=== PATIENT | male | born 1970 | race Caucasian/White ===

== ENCOUNTER 2024-03-10 12:56 | Emergency (ER) | payer OTHER, SELFPAY ==
[2024-03-10 12:57] VITALS: BP 120/98; PULSE 75; RESP 16; TEMP 36.6; O2SAT 98; BMI 30.7
--- NOTE | 2024-03-10 12:59 | EDS_ITS ---
HPI History of Present Illness Chief Complaint: Lower Extremity Injury [facility] Medical History (Updated 03/10/24 @ 13:12 by Letitia Wells) Knee injury Home Medications ?Medication ?Instructions ?Recorded ?Last Taken ?Type multivitamin with folic acid 400 1 tab PO DAILY 01/18/14 Unknown History mcg tablet (Thera) levofloxacin 500 mg tablet 500 mg PO DAILY #7 tabs 01/19/14 Unknown Rx (Levaquin) oxycodone-acetaminophen 5 mg-325 1 - 2 tab PO Q4H PRN PRN Pain #30 01/19/14 Unknown Rx mg tablet tabs Allergy/AdvReac Type Severity Reaction Status Date / Time Penicillins Allergy Unknown Verified 01/18/14 13:41 Social History Smoking Status: Unknown if ever smoked EXAM Physical Exam Const Vital Signs: 03/10/24 12:57 Temperature 97.8 F Temperature Source Oral Pulse Rate 75 Respiratory Rate 16 Blood Pressure 120/98 H Blood Pressure Mean 105 Pulse Ox 98 Oxygen Delivery Method Room Air MDM MDM MDM Narrative Medical decision making narrative: HISTORY OF PRESENT ILLNESS: 53-year-old male presents with concern for right knee pain. Notes felt a pop in his right knee last night. Could normally get it back but could not this time Patient denies active cancer, being bedridden for greater than 3 days, denies unilateral leg swelling, denies any varicose veins, denies any calf tenderness, denies tenderness along deep venous system. Denies major surgery within 12 weeks, recent paralysis, previous DVT. REVIEW OF SYSTEMS: Pertinent positives: Knee pain Pertinent negatives: swelling, calf TTP, numbness, tingling, PHYSICAL EXAM: Nursing triage notes reviewed, Vital signs reviewed Constitutional: please see mdm Extremities: No edema Neuro intact sensation L1-S1 dermatomal distributions. Intact 5/5 strength in hip flexion (T12-L3). Knee extension (L2-L4). Ankle dorsiflexion (L4-L5). Ankle plantar flexion (S1). Great toe extension (L5). 2+ patellar and Achilles DTRs. Skin: No rash or lesions noted MEDICAL DECISION MAKING: Chief Complaint: Knee pain External records reviewed: Reviewed prior allergies, problem list, vital signs, current medications, prior inpatient records Factors affecting care: none Social determinants of health: none History obtained from others: none Consults: none MDM Narrative: Patient was hemodynamically stable, afebrile and nontoxic-appearing. Exam with limited extension of right knee but no obvious knee effusion, calf tenderness, neurovascular compromise right lower extremity, compartments are soft. I considered the following differential diagnosis: Arthritis, soft tissue injury of the knee including meniscal tear, ligamentous injury, knee sprain, patellar dislocation, knee fracture dislocation, septic arthritis, compartment syndrome, DVT Patient's clinical exam was not consistent with compartment syndrome, DVT, arterial occlusion, septic arthritis. No indication for advanced images or arthrocentesis at this time. Was more concerned about meniscal tear versus ligamentous injury versus patella fracture dislocation versus femur or tibia fracture dislocation. As such I obtained an x-ray. I gave the patient 1 dose of oxycodone. ALL IMAGES (IF OBTAINED) HAVE BEEN PERSONALLY REVIEWED AND INTERPRETED BY MYSELF. X-ray of the right knee was read and reviewed personally myself showed no evidence of obvious bony abnormality. Radiologist agreed my interpretation. Suspect patient suffering from soft tissue injury such as a meniscal tear. He will need outpatient MRI. Will give him close orthopedic follow-up. Strict return precautions were discussed The patient and/or family, caregivers express understanding. The patient and/or family, caregivers agrees with the plan. Shared decision making: I will have a discussion with the patient and or visitors regarding risk/benefits of further testing or admission. They will be made aware of of the risk/benefits inherent in this decision they will be given the opportunity to voice understanding. Total critical care time today provided was at least 0 minutes. This excludes separately billable procedures. Critical care time (if documented) is secondary to the patient having high probability of clinically significant/life threatening deterioration in the patient's condition which required my urgent intervention. Impression: 1. Acute right knee pain 2. Knee sprain Dispo: Discharge home This note was generated with [employer] dictation software. It may contain incorrect words, spelling, and punctuation that were not noted in review of the chart prior to signing. Radiography Diagnostic Testing: Clinical Impression(s) from Imaging Studies Knee X-Ray 03/10/24 13:16 IMPRESSION: Normal x-ray examination of the knee. Electronically Signed: Timi Moreau MD at 14:53 EDT , Discharge Plan Triage Chief Complaint: Lower Extremity Injury ED Provider: Stevan Savage Dx/Rx/DC Orders Prescriptions: No Action multivitamin with folic acid [Thera] 1 TABLET tablet 1 tab PO DAILY levofloxacin [Levaquin] 500 MG tablet 500 mg PO DAILY Qty: 7 0RF oxycodone-acetaminophen 1 TABLET tablet 1 - 2 tab PO Q4H PRN PRN (Reason: Pain) Qty: 30 0RF Primary Care Provider: Care Physician,No Primary Referrals: Care Physician,No Primary [Primary Care Provider] - Print Language: Kazakh
--- NOTE | 2024-03-10 13:16 | RAD_ITS ---
STUDY: X-RAY - RIGHT KNEE REASON FOR EXAM: Male, 53 years old. Pain TECHNIQUE: 3 view(s) of the knee. COMPARISON: None. FINDINGS: Normal visualized distal femur. Normal visualized proximal tibia and fibula. Normal proximal tibiofibular articulation. There is no demonstrated fracture. Normal medial femorotibial compartment. Normal lateral femorotibial compartment. Normal patellofemoral articulation. The soft tissue structures are unremarkable. RAD/Knee 3 Views IMPRESSION: Normal x-ray examination of the knee. Electronically Signed: Timi Moreau MD at 14:53 EDT ,
[2024-03-10] MEDS: oxyCODONE 5 MG Tablet PO (13:25)
--- OUTSIDE RECORDS SUMMARY | 2024-03-10 13:29 | XMS RPT_ITS | CCD ---
Author Organization [facility] Care Team Providers Care Facilities Clerk Name Role Phone PRICE FONTANEZ III Unavailable Unavailable Huseyin MOORE MD, Frank A Primary Care Provider Sadaf vailable Allergies Allergy Classification Reported Allergen(s) Allergy Type Date of Onset Reaction(s) Facility (2 sources) Penicillins; Translations: [PENICILLINS] Propensity to adverse reactions to drug (disorder) 5 [facility] Repository (2 sources) Seasonal allergy; Translations: [SEASONAL ALLERGIES] Propensity to adverse reactions (disorder) 7 Unknown [facility] Repository Medications Current Medications Medication Drug Class(es) Dates Sig (Normalized) Sig (Original) cholecalciferol, vitamin D3, (VITAMIN D3 ORAL) (1 source) cholecalciferol, vitamin D3, (VITAMIN D3 ORAL) Take by mouth. Active CPAP (3 sources) Start: 12-15-2017 CPAP Indications: ELVIRA (obstructive sleep apnea) Please send supplies: suitable mask per pt preference, Need for chin strap, head gear, humidity, tubing, lifetime supplies. G47.33 Obstructive Sleep Apnea 1 Device 12/15/2017 Active Start: 09-14-2017 CPAP Cpap 15 c m H2O, Heat Humidity, suitable mask, Lifetime supplies, opt Chinstrap, G47.33. 1 Device 09/14/2017 Active Start: 09-14-2017 CPAP Indicatio ns: ELVIRA (obstructive sleep apnea) CHIN STRAP, USED WITH CPAP DEVICE 1 Device 09/14/2017 Active multivitamin (DAILY VITAMIN) tablet (1 source) Start: 01-18-2014 take 1 tablet by mouth once daily multivitamin (DAILY VITAMIN) tablet Take 1 tablet by mouth once daily. 0 01/18/2014 Active VITAMIN A ORAL (1 source) VITAMIN A ORAL T david by mouth. Active Zinc (1 source) ZINC ORAL Take b y mouth. Active Problems Active Problems Problem Classification Problem Date Documented Da te Episodic/Chronic Other non-traumatic joint disorders (1 source) Pain of right wrist; Translations: [Pain in right wrist] 03-23-2021 Episodic Residual codes; unclassified (1 source) Daytime somnolence; Translations: [Other hypersomnia] Onset: 12-30-2016 12-30-2016 Chronic Residual codes; unclassified (1 source) Obstructive sleep apnea syndrome; Translations: [Obstructive sleep apnea (adult) (pediatric)] Onset: 03-16-2017 03-16-2017 Chronic Unclassified (2 sources) Other hypersomnia; Translations: [Obstructive sleep apnea (adult) (pediatric)] Onset: 12-30-2016 Chronic Past or Other Problems Problem Classification Problem Date Documented Da te Episodic/Chronic Appendicitis and other appendiceal conditions (1 source) Acute appendicitis with generalized peritonitis; Translations: [Acute appendicitis with generalized peritonitis] Onset: 01-22-2014 Resolved: 12-30-2016 12-30-2016 Episodic Residual codes; unclassified (1 source) Family history of prostate cancer; Translations: [Family history of malignant neoplasm of prostate] Onset: 12-30-2016 12-30-2016 Episodic Substance-related disorders (1 source) Tobacco user; Translations: [Nicotine dependence, unspecified, uncomplicated] Onset: 06-14-2007 Resolved: 12-30-2016 12-30-2016 Chronic Results Test Name Value Interpretation Reference Range Facil frdeo Carrie 03-27-2021 MARISELA Telephone ([facility]) JOAQUINA OLMOS ([id number]) 1970 M Date Time Provider Department 03/27/21 [facility] During your visit today, we recorded the following information about you: Diane Cerda APRN.CNP 03/27/2021 3:02 PM Signed Can please call the patient and let him know that I reviewed his lab results. His labs overall look good, I do not see any signs of diabetes. However his triglycerides were elevated. I would recommend taking an tsdr-vcz-tvzfuza fish oil and trying to work on eating a healthy diet. Try to get some form of exercise. Please let me know if he has any questions. No further testing is needed at this time. Thank you. Diane Cerda APRN.ERINN Greco Ma 03/30/2021 3:19 PM Signed Pt notified via [place]. Michelle Greco Ma Allergies As of Date: 03/27/2021 Noted Allergy Reaction PENICILLINS 03/15/2005 SEASONAL ALLERGIES 12/30/2016 16 - Unknown Date Reviewed: 03/23/2021 Reviewed by: Diane Cerda APRN.HYDRAULIC ASSEMBLER - Fully Assessed Reason for Visit: Results [95] Prescriptions as of 03/30/2021 - cholecalciferol, vitamin D3, (VITAMIN D3 ORAL) Take by mouth. - VITAMIN A ORAL Take by mouth. - ZINC ORAL Take by mouth. - CPAP Please send supplies: suitable mask per pt preference, Need for chin strap, head gear, humidity, tubing, lifetime supplies. G47.33 Obstructive Sleep Apnea - CPAP Cpap 15 cm H2O, Heat Humidity, suitable mask, Lifetime supplies, opt Chinstrap, G47.33. - CPAP CHIN STRAP, USED WITH CPAP DEVICE - multivitamin (DAILY VITAMIN) tablet Take 1 tablet by mouth once daily. Problem List As Of Date 03/27/2021 Noted Resolved Tobacco use disorder [F17.200] 06/14/2007 12/30/2016 Acute appendicitis with generalized peritonitis* 4 12/30/2016 Family history of prostate cancer in father [Z8*12/30/2016 Excessive daytime sleepiness [G47.19] 12/30/2016 ELVIRA (obstructive sleep apnea) [G47.33] 03/16/2017 Encounter Status:Closed by MICHELLE GRECO [facility]ELA [facility] ([facility]) OLMOSJOAQUINA Mukherjee ([id number]) 1970 M Date Time Provider Department 03/25/21 DIANE CERDA During your visit today, we recorded the following information about you: Diane Cerda APRN.CNP 03/25/2021 12:27 PM Signed Can you please call the patient and let him know that I reviewed his x-ray results. The x-ray of the wrist did not show any fractures however does show some cystic changes within the wrist due to overuse. We can continue to use the wrist brace along with a good NSAID to reduce inflammation or I can order more advanced imaging to look closer at the soft tissue. The other option is to place consult to orthopedics to have an evaluation from them first. Please let me know what he would like to do. Thank you. Diane Cerda APRN.ERINN Dolan LPN 03/25/2021 3:09 PM Signed TC to pt.Left a detailed on a secure line to update him on xray and recommendations from ERINN. Also to call office, ask for a triage nurse on what directions he wants to go in. Marti Arroyo LPN 03/31/2021 1:37 PM Signed Pt would like to see an [facility]. Ralph let him know when the referral has been faxed. Lisbeth Cerda APRN.CNP 04/01/2021 12:36 PM Signed Can you please fax the ortho consult to [facility] for right wrist pain. Thank you. Diane Cerda APRN.ERINN Greco Ma 04/01/2021 2:48 PM Signed Referral, demo, ov, x ray faxed to [facility]. Will have their office call pt to schedule. Michelle Greco Ma Allergies As of Date: 03/25/2021 Noted Allergy Reaction PENICILLINS 03/15/2005 SEASONAL ALLERGIES 12/30/2016 16 - Unknown Date Reviewed: 03/23/2021 Reviewed by: Diane Cerda APRN.ERINN - Fully Assessed Reason for Visit: Orders [681] Primary Visit Diagnosis:Right wrist pain [M25.531] Order(s):CONSULT TO ORTHOPAEDICS [6693] Order #: [id number]: 1 FUTURE Prescriptions as of 04/01/2021 - cholecalciferol, vitamin D3, (VITAMIN D3 ORAL) Take by mouth. - VITAMIN A ORAL Take by mouth. - ZINC ORAL Take by mouth. - CPAP Please send supplies: suitable mask per pt preference, Need for chin strap, head gear, humidity, tubing, lifetime supplies. G47.33 Obstructive Sleep Apnea - CPAP Cpap 15 cm H2O, Heat Humidity, suitable mask, Lifetime supplies, opt Chinstrap, G47.33. - CPAP CHIN STRAP, USED WITH CPAP DEVICE - multivitamin (DAILY VITAMIN) tablet Take 1 tablet by mouth once daily. Problem List As Of Date 03/25/2021 Noted Resolved Tobacco use disorder [F17.200] 06/14/2007 12/30/2016 Acute appendicitis with generalized peritonitis* 4 12/30/2016 Family history of prostate cancer in father [Z8*12/30/2016 Excessive daytime sleepiness [G47.19] 12/30/2016 ELVIRA (obstructive sleep apnea) [G47.33] 03/16/2017 Encounter Status:Closed by MICHELLE GRECO MA on 04/01/21 Normal [facility] CBC and Differentialon 03-23 Abs Baso 0.04 k/uL Normal <0.11 [facility] Comment on above: Performed By: #### C BCDIF, LIPB #### [facility] [address] [place], [place] [address] Abs [place] 0.52 k/uL Normal <0.87 [facility] Comment on above: Performed By: #### C BCDIF, LIPB #### [facility] [address] [place], [place] [address] Abs Neut 3.34 k/uL Normal 1.45-7.50 [facility] Comment on above: Performed By: #### C BCDIF, LIPB #### [facility] [address] [place], [place] [address] Absolute nRBC <0.01 Normal <0.01 [facility] Comment on above: Performed By: #### C BCDIF, LIPB #### [place] [address] [place] [phone] Basophils/100 WBC (Bld) 0.7 % Normal [facility] Comment on above: Performed By: #### C BCDIF, LIPB #### [place] [phone] DTYPE Auto Diff Normal [facility] Comment on above: Performed By: #### C BCDIF LIPB #### [place] [phone] Eosinophils (Bld) [#/Vol] 0.21 10*3/uL Normal <0.46 [facility] Comment on above: Performed By: #### C BCDIF LIPB #### [place] [phone] Eosinophils/100 WBC (Bld) 3.8 % Normal [facility] Comment on above: Performed By: #### C BCDIGenny LIPB #### [place] [phone] [place] [phone] Erythrocyte distribution width (RBC) [Ratio] 12.7 % Normal 11.5-15.0 [facility] Comment on above: Performed By: #### C BCDIF, LIPB #### [place] [address] [place] [phone] Hematocrit (Bld) [Volume fraction] 45.9 % Normal 39.0-51.0 [facility] Comment on above: Performed By: #### C BCDIF, LIPB #### [place] [address] [place] [phone] Hemoglobin (Bld) [Mass/Vol] 15.1 g/dL Normal 13.0-17.0 [facility] Comment on above: Performed By: #### C BCDIF, LIPB #### [place] [address] [place], [place] [address] Lymphocytes (Bld) [#/Vol] 1.46 10*3/uL Normal 1.00-4.00 [facility] Comment on above: Performed By: #### C BCDIF, LIPB #### [place] [address] Lymphocytes/100 WBC (Bld) 26.1 % Normal [facility] Comment on above: Performed By: #### C BCDIF, LIPB #### [place] [address] MCH 29.4 pG Normal 26.0-34.0 [facility] Comment on above: Performed By: #### C BCDIF, LIPB #### [place] [address] MCHC (RBC) [Mass/Vol] 32.9 g/dL Normal 30.5-36.0 [facility] Comment on above: Performed By: #### C BCDIF, LIPB #### [place] [address] MCV (RBC) [Entitic vol] 89.5 fL Normal 80.0-100.0 [facility] Comment on above: Performed By: #### C BCDIF, LIPB #### [place] [address] Monocytes/100 WBC (Bld) 9.3 % Normal [facility] Comment on above: Performed By: #### C BCDIF, LIPB #### [place] [address] Neutrophils/100 WBC (Bld) 60.1 % Normal [facility] Comment on above: Performed By: #### C BCDIF, LIPB #### [address], [place] [address] NRBCs 0.0 /100 WBC Normal 0 [facility] Comment on above: Performed By: #### KEYSHA PÉREZ #### [place] [address] [place] [address] Platelet mean volume (Bld) [Entitic vol] 10.3 fL Normal 9.0-12.7 [facility] Comment on above: Performed By: #### KEYSHA PÉREZ #### [place] [address] [place] [address] Platelets (Bld) [#/Vol] 252 10*3/uL Normal 150-400 [facility] Comment on above: Performed By: #### BRANDY PÉREZB #### [place] [address] RBC (Bld) [#/Vol] 5.13 10*6/uL Normal 4.20-6.00 [facility] [place] [facility] Comment on above: Performed By: #### BRANDY PÉREZB #### [place] [address] [place] [address] WBC (Bld) [#/Vol] 5.59 10*3/uL Normal 3.70-11.00 [facility] [place] [facility] Comment on above: Performed By: #### KEYSHA PÉREZ #### [place] [address] [place] [address] CNOVon 03-23-2021 CNOV Office Visit (FAMPWS ) JOAQUINA OLMOS ([id number]) 1970 Date Time Provider Department 03/23/21 7:00 AM DIANE CERDA During your visit today, we recorded the following information about you: Pulse Respiration Blood pressure Weight 75/minute 16/minute 110/79 100.2 kg Height 1.785 m Diane Cerda APRN.CNP 03/23/2021 8:20 AM Signed This is a 50 year old male who presents today with: Patient presents with: Physical HISTORY OF PRESENT ILLNESS: Joaquina Olmos is a 50 year old male. Patient presents with: Physical Here in the office for wellness exam. Diet: eating a well balanced diet. Exercise: around the house, outside work. Vision: Due for exam, wears both contacts and glasses. Dental: Due for exam no difficulties. Sleep: 7-8 hours per night. Mood: Some increased anxiety at work due to stress, refers he is not ready to try medication as this time. Denies any sadness, hopelessness, or suicidal ideation. ELVIRA: Using Cpap, no concerns. Colonoscopy: Has never had, does not want at this time, will do stool occult card. PSA: Dad had prostate Ca. Vaccines: Denies all vaccines but is willing to get Tdap. Right Wrist Pain: Was moving railraod ties at the house about 4-5 weeks ago. Saunemin a pop, got very sore. He can now barley move this right thumb. Pain is sharp that waxes and wanes. Using a wrist thumb wrap. Has been using ibuprofen which is mildly helpful. PAST MEDICAL HISTORY: PAST MEDICAL HISTORY Diagnosis Date - NEGATIVE MEDICAL HISTORY PAST SURGICAL HISTORY Procedure Laterality Date - LAPAROSCOPY, SURGICAL, APPENDECTOMY 01/18/14 early - VASECTOMY 2004 ALLERGIES Penicillins and Seasonal Allergies MEDICATIONS Current Outpatient Medications Medication Sig - CPAP Please send supplies: suitable mask per pt preference, Need for chin strap, head gear, humidity, tubing, lifetime supplies. G47.33 Obstructive Sleep Apnea - CPAP Cpap 15 cm H2O, Heat Humidity, suitable mask, Lifetime supplies, opt Chinstrap, G47.33. - CPAP CHIN STRAP, USED WITH CPAP DEVICE - multivitamin (DAILY VITAMIN) tablet Take 1 tablet by mouth once daily. No current facility-administered medications for this visit. FAMILY HISTORY Problem Relation Age of Onset - Diabetes Mother - Prostate Cancer Father 65 Social History Tobacco Use - Smoking status: Former Smoker Years: 20.00 - Smokeless tobacco: Former User Types: Snuff Quit date: 04/11/2013 - Tobacco comment: 1 can weekly Substance Use Topics - Alcohol use: Yes Comment: occasionally - Drug use: No REVIEW OF SYSTEMS GENERAL: No weight loss, malaise or fevers/chills HEENT: Negative for frequent or significant headaches, No changes in hearing or vision. NECK: Negative for lumps, goiter, pain and significant neck swelling RESPIRATORY: Negative for cough, hemoptysis, wheezing, dyspnea or shortness of breath CARDIOVASCULAR: Negative for chest pain, leg swelling, orthopnea, or palpitations GI: No nausea, vomiting, or diarrhea/constipation . No hematochezia/melena. No heartburn or reflux symptoms. : No history of dysuria, frequency or incontinence MUSCULOSKELETAL: + Right wrist pain SKIN: Negative for lesions, rash, and itching ENDOCRINE: Negative for cold or heat intolerance, polyuria, polydipsia and goiter NEURO: No history of headaches, syncope, paralysis, seizures or tremors MOOD: Negative for depression, anxiety, or suicidal ideation. EXAM: BP 110/79 Pulse 75 Resp 16 Ht 178.5 cm (5' 10.28 ) Wt 100.2 kg (221 lb) SpO2 96% BMI 31.46 kg/m? PHYSICAL EXAM: General Appearance: Well appearing, alert, in no acute distress, well-hydrated, well nourished. Skin: Skin color, texture, turgor normal, no suspicious rashes or lesions. Head: Normocephalic, no masses, lesions, tenderness or abnormalities. Eyes: Anicteric sclera. Pupils are equally round and reactive to light. Extraocular movements are intact. Ears: External ears normal, canals clear. TM's pearly mccord. Neck: Supple, no adenopathy; thyroid symmetric, normal size, no bruits. Lungs: Lungs clear to auscultation. No wheezing, rhonchi, rales. Heart: RRR without murmur, gallop, or rubs. No ectopy. Abdomen: Normal abdominal exam, Abdomen soft, non-tender. Bowel sounds normal. No masses, organomegaly, Negative CVA tenderness. Extremities: No deformities, edema, skin discoloration, clubbing or cyanosis. Good capillary refill. Musculoskeletal: Positive findings: Extension decreased, pain noticed on radial aspect of right wrist. No swelling or color change noted. Peripheral Pulses: Normal, Capillary refill <2secs, strong peripheral pulses, Pulses palpable. Neurologic: Gait normal. Reflexes normal and symmetric. Sensation grossly intact. Mood: Pleasant, good eye contact, engaged. ASSESSMENT/PLAN: 1. Wellness examination - ICD9: V70.0, ICD10: Z (more content not included)... Normal [facility] Lipid Panel, [place] 021 Cholesterol [Mass/Vol] 161 mg/dL Normal <200 [facility] Comment on above: Result Comment: <200 mg/dL, Desirable 200-239 mg/dL, Borderline high >239 mg/dL, High Performed By: #### C BCDIF, LIPB #### [facility] [address] [place], [place] [address] Cholesterol in HDL [Mass/Vol] 26 mg/dL Low >39 [facility] Comment on above: Result Comment: 40-5 9 mg/dL, Acceptable >59 mg/dL, High: Negative risk factor for coronary heart disease <40 mg/dL, Low: Positive risk factor for coronary heart disease Performed By: #### C BCDIF, LIPB #### [facility] [address] [place], [place] [address] Cholesterol in LDL [Mass/Vol] 75 mg/dL Normal <100 [facility] Comment on above: Result Comment: <100 mg/dL, Optimal 100-129 mg/dL, Near optimal/above optimal 130-159 mg/dL, Borderline high 160-189 mg/dL, High >189 mg/dL, Very high Secondary prevention optimal LDL Cholesterol levels are recommended to be < 70 mg/dL Performed By: #### C BCDIF, LIPB #### [facility] [address] [place], [place] [address] Fasting Time 12 hrs Normal [facility] Comment on above: Performed By: #### C BCDIF, LIPB #### [facility] [address] [place], [place] [address] LDL:HDL Ratio 2.88 High <2.54 [facility] Comment on above: Result Comment: Refe rence: 1. National Cholesterol Education Program ATP III Guideline At-A-Glance Quick Desk Reference: National Heart, Lung, and Blood [place]. National Institutes of Health. 2001: NIH Publication No. 01-3305. 2. An International Atherosclerosis Society position paper: global recommendations for the management of dyslipidemia: executive summary, Atherosclerosis. 2014: 232(2):410-413. Performed By: #### C BCDIF, LIPB #### [facility] [address] [place] [address] Non HDL Cholesterol 135 mg/dL High <130 [facility] [place] [facility] Comment on above: Result Comment: <130 mg/dL, Optimal 130-159 mg/dL, Near optimal/above optimal 160-189 mg/dL, Borderline high 190-219 mg/dL, High >219 mg/dL, Very high Secondary prevention optimal non HDL Cholesterol levels are recommended to be < 100 mg/dL Performed By: #### C BCDIF, LIPB #### [facility] [address] [place] [address] TC:HDL Ratio 6.19 High <5.10 [facility] Comment on above: Performed By: #### C BCDIF, LIPB #### [facility] [address] [place] [address] Triglyceride [Mass/Vol] 299 mg/dL High <150 [facility] Comment on above: Result Comment: <150 mg/dL, Normal 150-199 mg/dL, Borderline high 200-499 mg/dL, High >499 mg/dL, Very high Performed By: #### C BCDIF, LIPB #### [facility] [address] [place], [place] [address] VLDL Cholesterol 60 mg/dL High <30 [facility] Comment on above: Performed By: #### C BCDIF, LIPB #### [facility] [address] [place], [place] [address] Remote CMP (for [facility] use only )on 03-23-2021 Albumin [Mass/Vol] 4.8 g/dL Normal 3.9-4.9 [facility] Comment on above: Performed By: #### R PSAS1, RCMP, RHBA1C #### [place] [address] [place] [phone] ALP [Catalytic activity/Vol] 72 U/L Normal 38-113 [facility] Comment on above: Performed By: #### R PSAS1, RCMP, RHBA1C #### [place] [address] [place] [address] ALT [Catalytic activity/Vol] 54 U/L Normal 10-54 [facility] Comment on above: Performed By: #### R PSAS1, RCMP, RHBA1C #### [address] [address] Anion gap [Moles/Vol] 9 mmol/L Normal 9-18 [facility] Comment on above: Performed By: #### R PSAS1, RCMP, RHBA1C #### [place] [address] AST [Catalytic activity/Vol] 32 U/L Normal 14-40 [facility] Comment on above: Performed By: #### R PSAS1, RCMP, RHBA1C #### [place] [address] [place], [place] [address] Bilirubin [Mass/Vol] 0.5 mg/dL Normal 0.2-1.3 [facility] Comment on above: Performed By: #### R PSAS1, RCMP, RHBA1C #### [place] [address] [place] [phone] Calcium [Mass/Vol] 9.9 mg/dL Normal 8.5-10.2 [facility] Comment on above: Performed By: #### R PSAS1, RCMP, RHBA1C #### [place] [address] [place], [place] [address] Chloride [Moles/Vol] 103 mmol/L Normal 97-105 [facility] Comment on above: Performed By: #### R PSAS1, RCMP, RHBA1C #### [facility] [address] [place] [phone] CO2 [Moles/Vol] 27 mmol/L Normal 22-30 [facility] Comment on above: Performed By: #### R PSAS1, RCMP, RHBA1C #### [place] [address] [place] [phone] Creatinine [Mass/Vol] 0.98 mg/dL Normal 0.73-1.22 [facility] Comment on above: Performed By: #### R PSAS1, RCMP, RHBA1C #### [place] [address] [place] [phone] eGFR- Amer. >60 Normal [facility] Comment on above: Performed By: #### R PSAS1, RCMP, RHBA1C #### [place] [phone] eGFR-All Other Races >60 Normal [facility] Comment on above: Result Comment: eGFR (Estimated GFR) Units of measure: mL/min/1.73 meters squared eGFR is derived from the reexpressed MDRD Study equation using the following parameters: serum creatinine, age, gender and race. The creatinine assay has been calibrated to be traceable to IDMS. An eGFR <60 mL/min/1.73m2 for >3 months is consistent with chronic kidney disease. Refer to KDOQI guidelines for clinical interpretation. In patients with unstable renal function, e.g. those with acute kidney injury, the eGFR may not accurately reflect actual GFR. Performed By: #### R PSAS1, RCMP, RHBA1C #### [place] [address] [place] [address] Glucose [Mass/Vol] 99 mg/dL Normal 74-99 [facility] Comment on above: Result Comment: The [place] Diabetes Association (ADA) provides guidance for cutoff values for fasting glucose and random glucose. The ADA defines fasting as no caloric intake for at least 8 hours. Fasting plasma glucose results between 100 to 125 mg/dL indicate increased risk for diabetes (prediabetes). Fasting plasma glucose results greater than or equal to 126 mg/dL meet the criteria for diagnosis of diabetes. In the absence of unequivocal hyperglycemia, results should be confirmed by repeat testing. In a patient with classic symptoms of hyperglycemia or hyperglycemic crisis, random plasma glucose results greater than or equal to 200 mg/dL meet the criteria for diagnosis of diabetes. Reference: Standards of Medical Care in Diabetes 2016, [place] Diabetes Association. Diabetes Care. 2016.39(Suppl 1). Performed By: #### R PSAS1, RCMP, RHBA1C #### [facility] [address] [place] [address] Potassium [Moles/Vol] 4.4 mmol/L Normal 3.7-5.1 [facility] Comment on above: Performed By: #### R PSAS1, RCMP, RHBA1C #### [place] [address] [place] [phone] Protein [Mass/Vol] 7.3 g/dL Normal 6.3-8.0 [facility] Comment on above: Performed By: #### R PSAS1, RCMP, RHBA1C #### [place] [address] [place] [address] Sodium [Moles/Vol] 139 mmol/L Normal 136-144 [facility] Comment on above: Performed By: #### R PSAS1, RCMP, RHBA1C #### [facility] [address] [place] [address] Urea nitrogen [Mass/Vol] 14 mg/dL Normal 9-24 [facility] Comment on above: Performed By: #### R PSAS1, RCMP, RHBA1C #### [place] [id number] [place] [address] Remote HBA1C (for [facility] use on ly)on 03-23-2021 Glucose [Mass/Vol] 111 mg/dL Normal [facility] Comment on above: Result Comment: eAG: (Estimated average glucose) is a calculated value from HgbA1c and is customer loyalty representative of the average blood glucose level in the last 2-3 month period. Performed By: #### R PSAS1, RCMP, RHBA1C #### [facility] [address] [place], [place] [address] HbA1c (Bld) [Mass fraction] 5.5 % Normal 4.3-5.6 [facility] Comment on above: Result Comment: Amer ican Diabetes Association guidelines indicate that patients with HgbA1c in the range 5.7-6.4% are at increased risk for development of diabetes, and intervention by lifestyle modification may be beneficial. HgbA1c greater or equal to 6.5% is considered diagnostic of diabetes. Performed By: #### R PSAS1, RCMP, RHBA1C #### [facility] [address] [place], [place] [address] XR WRIST 3V PA/LAT/OBL RTon 03-23-2021 XR WRIST 3V PA/LAT/OBL RT * * *Final Report* * * DATE OF EXAM: Mar 23 2021 8:12AM WOX 5271 - XR WRIST 3V PA/LAT/OBL RT / PROCEDURE REASON: Right wrist pain * * * * Physician Interpretation * * * * EXAMINATION / TECHNIQUE: XR WRIST 3V PA/LAT/OBL RT PATIENT/TECHNOLOGIST PROVIDED HISTORY: moving railroad ties about 5 weeks ago and heard a pop and has been painful since on radial side, has pain everytime he moves his right thumb CLINICAL INFORMATION ( PROVIDED BY ORDERING CLINICIAN) : Right wrist pain COMPARISON: None RESULT: No acute fracture or dislocation. Joint spaces are preserved. Focal cystic changes along the ulnar aspect of the lunate with suggestion of mild positive ulnar variance. Tiny ossification along the ulnar styloid. IMPRESSION: No acute osseous abnormality. 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 Patch Sander: PSCB Transcribe Date/Time: Mar 23 2021 8:55A Dictated by : JULIA JAIN MD This examination was interpreted and the report reviewed and electronically signed by: JULIA JAIN MD on Mar 23 2021 8:59AM EST [id number] Normal [facility] XR Wrist - right PA and Late ral and Obliqueon 03-23-2021 IMPRESSION: No acute osseous abnormality. 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 Patch Sander: JUSTINE Transcribe Date/Time: Mar 23 2021 8:55A Dictated by : JULIA JAIN MD This examination was interpreted and the report reviewed and electronically signed by: JULIA JAIN MD on Mar 23 2021 8:59AM [facility] DIVISION OF RADIOLOGY * * *Final Report* * * DATE OF EXAM: Mar 23 2021 8:12AM WOX 5271 - XR WRIST 3V PA/LAT/OBL RT / PROCEDURE REASON: Right wrist pain * * * * Physician Interpretation * * * * EXAMINATION / TECHNIQUE: XR WRIST 3V PA/LAT/OBL RT PATIENT/TECHNOLOGIST PROVIDED HISTORY: moving railroad ties about 5 weeks ago and heard a pop and has been painful since on radial side, has pain everytime he moves his right thumb CLINICAL INFORMATION ( PROVIDED BY ORDERING CLINICIAN) : Right wrist pain COMPARISON: None RESULT: No acute fracture or dislocation. Joint spaces are preserved. Focal cystic changes along the ulnar aspect of the lunate with suggestion of mild positive ulnar variance. Tiny ossification along the ulnar styloid. DIVISION OF RADIOLOGY Provider, [facility] - 03/23/2021 * * *Final Report* * * DATE OF EXAM: Mar 23 2021 8:12AM WOX 5271 - XR WRIST 3V PA/LAT/OBL RT / PROCEDURE REASON: Right wrist pain * * * * Physician Interpretation * * * * EXAMINATION / TECHNIQUE: XR WRIST 3V PA/LAT/OBL RT PATIENT/TECHNOLOGIST PROVIDED HISTORY: moving railroad ties about 5 weeks ago and heard a pop and has been painful since on radial side, has pain everytime he moves his right thumb CLINICAL INFORMATION ( PROVIDED BY ORDERING CLINICIAN) : Right wrist pain COMPARISON: None RESULT: No acute fracture or dislocation. Joint spaces are preserved. Focal cystic changes along the ulnar aspect of the lunate with suggestion of mild positive ulnar variance. Tiny ossification along the ulnar styloid. IMPRESSION IMPRESSION: No acute osseous abnormality. 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 Patch Sander: [employer] Transcribe Date/Time: Mar 23 2021 8:55A Dictated by : JULIA JAIN MD This examination was interpreted and the report reviewed and electronically signed by: JULIA JAIN MD on Mar 23 2021 8:59AM EST [facility] Radiology Study observation (narrative) [facility] XR Wrist - right PA and Late ral and ObliqueOrdered By: Ccf Provider on 03-23-2021 [facility] PROGRESSon 06-25-2017 PROGRESS HNO ID: [id number] Author: Price Fontanez III Service: (none) Author Type: Physician Type: Progress Notes Filed: 06/25/2017 9:28 AM Note Text: Prescription written for C Pap at 15 cm pressure Price Fontanez III MD [facility] Encounters Encounter Date Encounter Type Care Provider Facility Start: 03-23-2021 End: 03-23-2021 Subsequent hospital visit by physician Xr [facility] Fernando Work Phone: Radiology Comment on above: Right wrist pain [M2 5.531] Start: 06-10-2017 End: 06-24-2017 Ambulatory PRICE FONTANEZ III [facility] Procedures Date Procedure Procedure Detail Performing Clinician Start: 03-23-2021 PSA screening Comment on above: Result Comment: Total PSA test methodolo gy used is the Electrochemiluminescence Immunoassay. Performed By: #### R PSAS1, RCMP, RHBA1C #### [facility] [address] [id number] Start: 03-23-2021 Radex wrist complete minimum 3 views Diane Cerda APRN.CNP Work Phone: Start: 03-23-2021 Lipid 1996 panel - Serum or Plasma Xr [place] Work Phone: Plan of Treatment Date Care Activity Detail Author Start: 03-23-2031 Urine microalbumin profile DTa P,Tdap,Td Vaccine (2 - Td or Tdap) [facility] Start: 03-23-2026 Lipid panel Lipid Screening [facility] Start: 03-23-2024 Diabetes Screening Diabetes Screenin g [facility] Start: 01-15-2024 Covid-19 Vaccine () Covid-19 Vaccine ( season) [facility] Start: 01-15-2024 Influenza vaccination Influenza Vacc ine (#1) [facility] Start: 2020 Shingrix Vaccine (1 of 2) [place] grix Vaccine (1 of 2) [facility] Start: 07-25-2015 Screening for malign ant neoplasm of colon [facility] Start: 1989 Hepatitis B Vaccine (1 of 3 - 19+ 3-dose series) Hepatitis B Vaccine (1 of 3 - 19+ 3-dose series) [facility] Start: 1988 Anxiety Screening Anxiety Screening [facility] Start: 1988 Depression Screening Depression Scre ening [facility] Start: 1988 Hepatitis C screening Hepatitis C Sc ernestine [facility] Start: 1988 HIV screening HIV Screening [facility] Immunizations Immunization Date Immunization Notes Care Provider Sandra jacob 03-23-2021 tetanus toxoid, redu hernandez diphtheria toxoid, and acellular pertussis vaccine, adsorbed Xr [place] Work Phone: [facility] Payers Date Payer Category Payer Unknown [employer] E PPO [id number] 2019-Present [phone] [address] [place] [address] PPO [id number] Social History Date Type Detail Facility Start: 07-12-2013 Tobacco smoking stat us MIIS Ex-smoker [facility] Work Phone: History of tobacco use Current smoker [facility] History of tobacco use Cigarette Smoker C [facility] Start: 07-12-2013 Tobacco use and exposure Former smokeless tobacco user [facility] End: 04-11-2013 History of tobacco use Snuff User [facility] Start: 03-23-2021 Alcoholic beverage intake Current drinker of alcohol (finding) [facility] Start: 04-23-2020 End: 03-23-2021 History of Social function [facility] Start: 04-23-2020 End: 03-23-2021 Tobacco use panel [facility] National Score (1-10 0), lower number is lower risk Not on file [facility] Start: 1970 Sex assigned at Not on file C [facility] Start: 02-21-2021 End: 03-23-2021 Exposure to SARS-CoV-2 (event) Not sure [facility] Progress note 04-10-2021 Note Date & Type Note Facility 04-10-2021 Note HNO ID: [id number] Author: Marvel Piper Population Health Navigator Service: ? Author Type: ? Type: Progress Notes Filed: 04/10/2021 1:42 PM Note Text: POPULATION HEALTH NAVIGATION OUTREACH Action/FYI Updated pcp field Contact made with patient or family member? NO Pt identified by name and : NO Outreach Outcome/Action PCP field updated Reason for Outreach Attribution: Provider Off-boarding Payer: Payor: [employer]TC[employer] / Plan: [employer] PPO / Product Type: PPO / Care Gap Reviewed:: Reminder: Reminder note to check Health Maintenance for items below Health Maintenance items due: COLORECTAL CANCER SCREENING Never done Advanced Directives Completed: Have you ever planned for future healthcare decisions with a power of energy attorney, living will, or advance directives? No. Please bring a copy to your next appointment or email to [email or web address] Referrals: N/A Message Sent to Practice: NO Navigation Signature: Marvel Piper Population Health Navigator April 10, 2021 1:41 PM [facility] 04-10-2021 Note Date & Type Note Facility 04-10-2021 Note Patient Outreach (NE TNAV) JOAQUINA OLMOS ([id number]) 1970 M Date Time Provider Department 04/10/21 MARVEL PIPER During your visit today, we recorded the following information about you: Marvel Piper Population Health Navigator 04/10/2021 1:42 PM Signed POPULATION HEALTH NAVIGATION OUTREACH Action/FYI Updated pcp field Contact made with patient or family member? NO Pt identified by name and : NO Outreach Outcome/Action PCP field updated Reason for Outreach Attribution: Provider Off-boarding Payer: Payor: [employer] / Plan: [employer] PPO / Product Type: PPO / Care Gap Reviewed:: Reminder: Reminder note to check Health Maintenance for items below Health Maintenance items due: COLORECTAL CANCER SCREENING Never done Advanced Directives Completed: Have you ever planned for future healthcare decisions with a power of energy attorney, living will, or advance directives? No. Please bring a copy to your next appointment or email to Referrals: N/A Message Sent to Practice: NO Navigation Signature: Marvel Piper Population Health Navigator April 10, 2021 1:41 PM Allergies As of Date: 04/10/2021 Noted Allergy Reaction PENICILLINS 03/15/2005 SEASONAL ALLERGIES 12/30/2016 16 - Unknown Date Reviewed: 03/23/2021 Reviewed by: Diane Cerda APRN.HYDRAULIC ASSEMBLER - Fully Assessed Reason for Visit: Population Health Navigation Outreach [3910] Cmt: Offboarding Prescriptions as of 04/10/2021 - cholecalciferol, vitamin D3, (VITAMIN D3 ORAL) Take by mouth. - VITAMIN A ORAL Take by mouth. - ZINC ORAL Take by mouth. - CPAP Please send supplies: suitable mask per pt preference, Need for chin strap, head gear, humidity, tubing, lifetime supplies. G47.33 Obstructive Sleep Apnea - CPAP Cpap 15 cm H2O, Heat Humidity, suitable mask, Lifetime supplies, opt Chinstrap, G47.33. - CPAP CHIN STRAP, USED WITH CPAP DEVICE - multivitamin (DAILY VITAMIN) tablet Take 1 tablet by mouth once daily. Problem List As Of Date 04/10/2021 Noted Resolved Tobacco use disorder [F17.200] 06/14/2007 12/30/2016 Acute appendicitis with generalized peritonitis*01/22/2014 12/30/2016 Family history of prostate cancer in father [Z8*12/30/2016 Excessive daytime sleepiness [G47.19] 12/30/2016 ELVIRA (obstructive sleep apnea) [G47.33] 03/16/2017 Encounter Status:Closed by [facility] on 04/10/21 [facility] Progress note 03-23-2021 Note Date & Type Note Facility 03-23-2021 Note HNO ID: [id number] Author: RT Brian(R) Service: Nuclear Medicine Author Type: Technologist Type: Progress Notes Filed: 03/23/2021 8:12 AM Note Text: Radiology Service Progress Note PATIENT NAME: Joaquina Olmos DATE OF SERVICE: March 23, 2021 TIME: 8:02 AM PATIENT IDENTITY VERIFICATION COMPLETED USING TWO (2) IDENTIFIERS: Name and Date of confirmed by patient verbally. FALL SCREENING: Has the patient had 2 falls in the last year or 1 fall with injury or currently using an Ambulatory Assistive Device (Walker, Cane, Wheelchair, Crutches, etc.)? No PATIENT GENDER DATA: Male PATIENT RELEVANT IMPLANT DATA REVIEWED: Not Applicable RADIOLOGY DEPARTMENT: General X-ray: Exam(s) Completed: Upper Extremity X-Ray(s): Wrist, right PERIPHERAL IV DATA: Not applicable SIGNED BY: RT Brian(R) March 23, 2021 8:02 AM [facility] Progress note 03-23-2021 Note Date & Type Note Facility 03-23-2021 Note HNO ID: [id number] Author: Diane Cerda APRN.HYDRAULIC ASSEMBLER Service: ? Author Type: Nurse Practitioner Type: Progress Notes Filed: 03/23/2021 8:20 AM Note Text: This is a 50 year old male who presents today with: Patient presents with: Physical HISTORY OF PRESENT ILLNESS: Joaquina Olmos is a 50 year old male. Patient presents with: Physical Here in the office for wellness exam. Diet: eating a well balanced diet. Exercise: around the house, outside work. Vision: Due for exam, wears both contacts and glasses. Dental: Due for exam no difficulties. Sleep: 7-8 hours per night. Mood: Some increased anxiety at work due to stress, refers he is not ready to try medication as this time. Denies any sadness, hopelessness, or suicidal ideation. ELVIRA: Using Cpap, no concerns. Colonoscopy: Has never had, does not want at this time, will do stool occult card. PSA: Dad had prostate Ca. Vaccines: Denies all vaccines but is willing to get Tdap. Right Wrist Pain: Was moving railraod ties at the house about 4-5 weeks ago. Saunemin a pop, got very sore. He can now barley move this right thumb. Pain is sharp that waxes and wanes. Using a wrist thumb wrap. Has been using ibuprofen which is mildly helpful. PAST MEDICAL HISTORY: PAST MEDICAL HISTORY Diagnosis Date - NEGATIVE MEDICAL HISTORY PAST SURGICAL HISTORY Procedure Laterality Date - LAPAROSCOPY, SURGICAL, APPENDECTOMY 01/18/14 early - VASECTOMY 2004 ALLERGIES Penicillins and Seasonal Allergies MEDICATIONS Current Outpatient Medications Medication Sig - CPAP Please send supplies: suitable mask per pt preference, Need for chin strap, head gear, humidity, tubing, lifetime supplies. G47.33 Obstructive Sleep Apnea - CPAP Cpap 15 cm H2O, Heat Humidity, suitable mask, Lifetime supplies, opt Chinstrap, G47.33. - CPAP CHIN STRAP, USED WITH CPAP DEVICE - multivitamin (DAILY VITAMIN) tablet Take 1 tablet by mouth once daily. No current facility-administered medications for this visit. FAMILY HISTORY Problem Relation Age of Onset - Diabetes Mother - Prostate Cancer Father 65 Social History Tobacco Use - Smoking status: Former Smoker Years: 20.00 - Smokeless tobacco: Former User Types: Snuff Quit date: 04/11/2013 - Tobacco comment: 1 can weekly Substance Use Topics - Alcohol use: Yes Comment: occasionally - Drug use: No REVIEW OF SYSTEMS GENERAL: No weight loss, malaise or fevers/chills HEENT: Negative for frequent or significant headaches, No changes in hearing or vision. NECK: Negative for lumps, goiter, pain and significant neck swelling RESPIRATORY: Negative for cough, hemoptysis, wheezing, dyspnea or shortness of breath CARDIOVASCULAR: Negative for chest pain, leg swelling, orthopnea, or palpitations GI: No nausea, vomiting, or diarrhea/constipation. No hematochezia/melena. No heartburn or reflux symptoms. : No history of dysuria, frequency or incontinence MUSCULOSKELETAL: + Right wrist pain SKIN: Negative for lesions, rash, and itching ENDOCRINE: Negative for cold or heat intolerance, polyuria, polydipsia and goiter NEURO: No history of headaches, syncope, paralysis, seizures or tremors MOOD: Negative for depression, anxiety, or suicidal ideation. EXAM: BP 110/79 Pulse 75 Resp 16 Ht 178.5 cm (5' 10.28 ) Wt 100.2 kg (221 lb) SpO2 96% BMI 31.46 kg/m? PHYSICAL EXAM: General Appearance: Well appearing, alert, in no acute distress, well-hydrated, well nourished. Skin: Skin color, texture, turgor normal, no suspicious rashes or lesions. Head: Normocephalic, no masses, lesions, tenderness or abnormalities. Eyes: Anicteric sclera. Pupils are equally round and reactive to light. Extraocular movements are intact. Ears: External ears normal, canals clear. TM's pearly mccord. Neck: Supple, no adenopathy; thyroid symmetric, normal size, no bruits. Lungs: Lungs clear to auscultation. No wheezing, rhonchi, rales. Heart: RRR without murmur, gallop, or rubs. No ectopy. Abdomen: Normal abdominal exam, Abdomen soft, non-tender. Bowel sounds normal. No masses, organomegaly, Negative CVA tenderness. Extremities: No deformities, edema, skin discoloration, clubbing or cyanosis. Good capillary refill. Musculoskeletal: Positive findings: Extension decreased, pain noticed on radial aspect of right wrist. No swelling or color change noted. Peripheral Pulses: Normal, Capillary refill <2secs, strong peripheral pulses, Pulses palpable. Neurologic: Gait normal. Reflexes normal and symmetric. Sensation grossly intact. Mood: Pleasant, good eye contact, engaged. ASSESSMENT/PLAN: 1. Wellness examination - ICD9: V70.0, ICD10: Z00.00 (primary diagnosis) - Colon cancer screening reviewed and colonoscopy recommended. FOBT - Recommended regular aerobic exercise. - Discussed need and benefit for weight loss. BMI 31.46 kg/(m2) - Vaccination(s) recommended today: Influenza, Tdap, Pneumovax, Shingrix and (more content not included)... [facility] History of Present illness Narrative 03-23-2021 Nicol Lai RT(R) - 03/23/2021 8:00 AM EST Note Date & Type Note Facility 03-23-2021 History of Presen t illness Narrative Radiology Service Progress Note PATIENT NAME: Joaquina Olmos DATE OF SERVICE: March 23, 2021 TIME: 8:02 AM PATIENT IDENTITY VERIFICATION COMPLETED USING TWO (2) IDENTIFIERS: Name and Date of confirmed by patient verbally. FALL SCREENING: Has the patient had 2 falls in the last year or 1 fall with injury or currently using an Ambulatory Assistive Device (Walker, Cane, Wheelchair, Crutches, etc.)? No PATIENT GENDER DATA: Male PATIENT RELEVANT IMPLANT DATA REVIEWED: Not Applicable RADIOLOGY DEPARTMENT: General X-ray: Exam(s) Completed: Upper Extremity X-Ray(s): Wrist, right PERIPHERAL IV DATA: Not applicable SIGNED BY: RT Brian(R) March 23, 2021 8:02 AM documented in this encounter [facility] Evaluation note Note Date & Type Note Facility Evaluation note Diagnosis Right wrist pain Pain in joint, forearm documented in this encounter [facility] Reason for referral (narrative) Diagnostic Procedure Only (Routine) - Closed Note Date & Type Note Facility Reason for referral (narrati ve) Specialty Diagnoses / Procedures Referred By Contac t Referred To Contact XR IMAGING Diagnoses Right wrist pain Procedures XR WRIST GENERAL 3V PA/LAT/OBL RT X-RAY WRIST COMPLET MIN 3 VIEWS Diane Cerda APRN.HYDRAULIC ASSEMBLER [address] [place] [address] [place] [address] Referral ID Status Reason Start Date Expiration Date V isits Requested Visits Authorized Closed Auto-Generate d Referral 03/23/2021 03/23/2022 99 99 [facility] Reason for visit Narrative Diagnostic Procedure Only (Routine) - Closed Note Date & Type Note Facility Reason for visit Narrative Specialty Diagnoses / Procedures Referred By Contac t Referred To Contact XR IMAGING Diagnoses Right wrist pain Procedures XR WRIST GENERAL 3V PA/LAT/OBL RT X-RAY WRIST COMPLET MIN 3 VIEWS Diane Cerda APRN.HYDRAULIC ASSEMBLER [address] [place] [address] [place] [address] Referral ID Status Reason Start Date Expiration Date V isits Requested Visits Authorized Closed Auto-Generate d Referral 03/23/2021 03/23/2022 99 99 [facility] Summary Purpose Family History No Family History Records FoundNo Family History Records Found Advance Directives No Advanced Directives Records FoundNo Advanced Directives Records Found Additional Source Comments (unrecognized sect ion and content) No Status Records FoundNo Status Records Found INFORMATION SOURCE (unrecogn ized section and content) DATE CREATED AUTHOR 11/07/2017 [facility] DATE CREATED AUTHOR AUTHOR'S DEX BRUNNER 06/17/2021 [facility] Source Comments (unrecognize d section and content) In the event this informatio n is protected by the Federal Confidentiality of Alcohol and Drug Abuse Patient Records regulations: The Federal rules restrict any use of the information to criminally investigate or prosecute any alcohol or drug abuse patient.[facility] Care Teams (unrecognized sec tion and content) Facilities Clerk Relationship Specialty Start Date End Date Price Fontanez III, MD PCP - General 02/22/05 04/09/21 FOR RECORDS PERTAINING TO PATIENTS WHO ARE OR HAVE BEEN ENROLLED IN A CHEMICAL DEPENDENCY/SUBSTANCEABUSE PROGRAM, SOME INFORMATION MAY BE OMITTED. This clinical summary was aggregated from multiple sources. Caution should be exercised in using it in the provision of clinical care. This summary normalizes information from multiple sources, and as a consequence, information in this document may materially change the coding, format and clinical context of patient data. In addition, data may be omitted in some cases. CLINICAL DECISIONS SHOULD BE BASED ON THE PRIMARY CLINICAL RECORDS. [employer] [facility]. provides no warranty or guarantee of the accuracy or completeness of information in this document.
--- NOTE | 2024-03-10 14:48 | ED.RN ---
called xray to inquire about results.
== END 2024-03-10 15:16 | disposition home or self-care (01) ==
PROVIDERS: Emergency Provider Emergency Medicine; Visit Provider Emergency Medicine
DX: S83.91XA Sprain of unspecified site of right knee, initial encounter (principal)
CPT/HCPCS: 73562; 99282

== ENCOUNTER → 2024-06-04 | Outpatient (CLI) | payer OTHER, SELFPAY ==
--- NOTE | 2024-06-04 06:52 | EKG12_ITS ---
Test Reason : PREOP Blood Pressure : */* mmHG Vent. Rate : 78 BPM Atrial Rate : 78 BPM P-R Int : 170 ms QRS Dur : 88 ms QT Int : 364 ms P-R-T Axes : 27 34 40 degrees QTcB Int : 414 ms Normal sinus rhythm Normal ECG Confirmed by RIGO REEVES, NGOZI ([id number]), fan mail editor TOBY PILLAI ([id number]) on 06/04/2024 10:57:55 A M Referred By: Cherelle Hernandez Confirmed By: NGOZI SIERRA MD
[2024-06-04 08:03] LABS: Absolute Lymphocyte Count 1.76 X10^3/uL (0.83-4.51); Absolute Neutrophil Count 3.9 X10^3/uL (2.0-7.7); Basophil# 0.07 X10^3/uL; Eosinophil# 0.59 X10^3/uL; Eosinophils% 8.5 % (0-5); Hematocrit 45.7 % (40-54); Hemoglobin 14.9 g/dL (13.0-16.5); Lymphocyte # 1.76 X10^3/ul (0.83-4.51); Lymphocyte % 25.3 % (19-41); Mean Corp Hgb Conc 32.6 g/dL (32-36); Mean Corpuscular Hgb 28.3 pg (27.0-32.0); Mean Corpuscular Volume 86.9 fL (80-94); Mean Platelet Vol. 9.9 fl (6.2-12.0); Monocyte# 0.57 X10^3/uL; Monocyte% 8.2 % (0-10); NRBC Flagged by Analyzer 0 % (0-5); Neutrophil # 3.93 X10^3/uL (2.7-7.7); Neutrophil % 56.6 % (47-70); Platelet Count 250 K/mm3 (150-450); RBC Distribution Width CV 12.4 % (11.6-14.6); RBC Distribution Width SD 39.2 fl (35.1-43.9); Red Blood Count 5.26 M/mm3 (4.6-6.2)
[2024-06-04 08:21] LABS: Anion Gap 3 (5-15); BUN 14 mg/dL (7-18); Calcium,Total 9.1 mg/dL (8.5-10.1); Chloride 108 mmol/L (98-107); Creatinine, Serum 1.17 mg/dL (0.70-1.30); EST Glomerular Filtration Rate 69 mL/min (>60); Est Glom Filt Rate - Afr Amer 84 mL/min (>60); Glucose 107 mg/dL (74-106); Potassium 4.2 mmol/L (3.5-5.1); Sodium Level 140 mmol/L (136-145)
== END | disposition home or self-care (01) ==
LOC: PSN 06:52
PROVIDERS: Referring Provider Physician Assistant Surgical; Visit Provider Physician Assistant Surgical
DX: Z01.818 Encounter for other preprocedural examination (principal); Z01.810 Encounter for preprocedural cardiovascular examination
CPT/HCPCS: 36415; 80048; 85025; 93005